=== PATIENT | female | born 1985 | race Caucasian/White ===

== ENCOUNTER 2016-09-30 19:26 | Emergency (ER) | payer OTHER ==
[2016-09-30] MEDS ORDERED: SODIUM CHLORIDE 0.9% 1,000 ML IV STA (20:20)
[2016-09-30] MEDS ORDERED: diphenhydrAMINE 50 MG/ML 1 ML VIAL IVP STA (20:20)
[2016-09-30] MEDS ORDERED: METOCLOPRAMIDE 5 MG/ML 2 ML VIAL IVP STA (20:20)
[2016-09-30] MEDS ORDERED: MORPHINE SULFATE 4 MG/ML SYRINGE IV STA (20:20)
[2016-09-30] MEDS ORDERED: KETOROLAC 30 MG/ML 1 ML VIAL IVP STA (20:20)
--- NOTE | 2016-09-30 20:21 | ED ---
General Adult HPI - General Source: RN notes reviewed, old records reviewed <Gianfranco León - Last Filed: 09/30/16 20:20> <Florentin Bacon - Last Filed: 09/30/16 23:13> - General Stated complaint: Back pain Time Seen by Provider: 09/30/16 20:06 - History of Present Illness Initial comments: This is a 31-year-old female here for evaluation of headache. Patient has positional headache that she relates threes lumbar puncture. Patient has had multiple lumbar punctures in the recent days and weeks. No specific neurological diagnosis her problem, but has had multiple nonspecific symptoms. She's been inpatient chemical: The patient reportedly tried for evaluation of neurological symptoms. Patient did have lumbar puncture, was told increased caffeine intake. Patient states she is is had a positional headache for the last 3 days getting worse or does not going away. At this time she is just taking Motrin over pain (Gianfranco León) - Related Data Home Medications Medication Instructions Recorded Confirmed Cod Liver Oil 1 cap PO DAILY 09/30/16 09/30/16 Ibuprofen [Motrin] 800 mg PO DAILY PRN 09/30/16 09/30/16 Previous Rx's Medication Instructions Recorded ALPRAZolam [Xanax] 0.5 mg PO Q8HR PRN #6 tablet 09/30/16 Ibuprofen [Motrin] 600 mg PO Q6HR PRN #20 tab 09/30/16 Allergies Allergy/AdvReac Type Severity Reaction Status Date / Time No Known Allergies Allergy Verified 09/30/16 20:43 Review of Systems ROS Other: All systems not noted in ROS Statement are negative. <Gianfranco León - Last Filed: 09/30/16 20:20> ROS Other: All systems not noted in ROS Statement are negative. <Florentin Bacon - Last Filed: 09/30/16 23:13> ROS Statement: Those systems with pertinent positive or pertinent negative responses have been documented in the HPI. Past Medical History Past Medical History: No Reported History Past Surgical History: Section, Tonsillectomy Smoking Status: Never smoker Past Alcohol Use History: Occasional Past Drug Use History: None Reported <Florentin Bacon - Last Filed: 09/30/16 23:13> General Exam General appearance: alert, in no apparent distress Head exam: Present: atraumatic, normocephalic, normal inspection Eye exam: Present: normal appearance, PERRL, EOMI. Absent: scleral icterus, conjunctival injection, periorbital swelling ENT exam: Present: normal exam, mucous membranes moist Neck exam: Present: normal inspection. Absent: tenderness, meningismus, lymphadenopathy Respiratory exam: Present: normal lung sounds bilaterally. Absent: respiratory distress, wheezes, rales, rhonchi, stridor Cardiovascular Exam: Present: regular rate, normal rhythm, normal heart sounds. Absent: systolic murmur, diastolic murmur, rubs, gallop, clicks GI/Abdominal exam: Present: soft, normal bowel sounds. Absent: distended, tenderness, guarding, rebound, rigid Extremities exam: Present: normal inspection, full ROM, normal capillary refill. Absent: tenderness, pedal edema, joint swelling, calf tenderness Back exam: Present: normal inspection Neurological exam: Present: alert, oriented X3, CN II-XII intact Psychiatric exam: Present: normal affect, normal mood Skin exam: Present: warm, dry, intact, normal color. Absent: rash <Gianfranco León - Last Filed: 09/30/16 20:20> EKG Findings - EKG Comments: EKG Findings:: Sinus tachycardia 117. [place] 114. QRS 74. QT 318. QTC 433. Normal axis. Normal QRS. Normal ST-T. <Florentin Bacon - Last Filed: 09/30/16 23:13> Medical Decision Making <Gianfranco León - Last Filed: 09/30/16 20:20> <Florentin Bacon - Last Filed: 09/30/16 23:13> - Medical Decision Making Patient reevaluated by myself, Dr. Bacon. Patient symptom-free at this time. Patient is not interested in a blood patch. Patient and family updated on need for follow-up. Patient does request Motrin and Xanax for discharge. Patient does describe symptoms consistent with spinal headache. Patient states she did have for lumbar punctures recently, last was 4 days ago. (Florentin Bacon) Disposition <Gianfranco León - Last Filed: 09/30/16 20:20> <Florentin Bacon - Last Filed: 09/30/16 23:13> Clinical Impression: Spinal headache Disposition: HOME SELF-CARE Condition: Stable Instructions: Acute Headache (ED) Additional Instructions: Lay down as much as possible for the next 3 days. Follow up with your primary care physician in the next day or 2 for recheck. Return for fever, weakness, worsening or change in symptoms or other concerns. Prescriptions: ALPRAZolam [Xanax] 0.5 mg PO Q8HR PRN #6 tablet PRN Reason: Anxiety Ibuprofen [Motrin] 600 mg PO Q6HR PRN #20 tab PRN Reason: Pain Referrals: Jose G Pelaez DO [Primary Care Provider] - 1-2 days
[2016-09-30 20:43] VITALS: TEMP 98.3
[2016-09-30] MEDS ORDERED: LORazepam 2 MG/ML SYRINGE IV STA (21:41)
[2016-09-30 23:34] VITALS: BP 139/75; PULSE 95; RESP 18
== END 2016-09-30 23:38 | disposition home or self-care (01) ==
LOC: EC 19:26
DX: G97.1 Other reaction to spinal and lumbar puncture (principal); Z79.899 Other long term (current) drug therapy
CPT/HCPCS: 93005; 99284; 96374; 96375 ×2; 96361 ×2; J1200; J2765; J1885